=== PATIENT | female | born 1960 | race American Indian/Alaskan Native ===

== ENCOUNTER 2017-07-07 12:40 | Outpatient (CLI) | payer MEDICARE ==
--- NOTE | 2017-07-12 08:14 | Magnetic Resonance Report ---
BILATERAL BREAST MRI WITHOUT AND WITH CONTRAST: 07/07/17 12:40:00 CLINICAL: Family history of breast cancer with breast cancer in her daughter at age 42, paternal aunt at age 50 and paternal grandmother at age 70. Recent abnormal left mammogram and left breast ultrasound. A biopsy was recommended for a left subcutaneous mass measuring 1.3 x 1.3 x 1.0 cm. There is no mention of a clock face and there are no comparison images. COMPARISON:None. TECHNIQUE: Axial 1.0-mm T1 without, axial high resolution 2.0-mm T2 and axial 1.0-mm dynamic Vibrant high-resolution postcontrast T1 fat saturation sequences on a 1.5 Trina magnet. The examination was performed with an 8 channel dedicated [place] breast coil. Post processing with CAD and subtraction was performed on an [employer] workstation. 17.0 cc of Multihance was injected without incident for the contrast portion of the exam. Consent was obtained prior to the administration of the contrast. FINDINGS: Right: Mild background parenchymal enhancement. No mass or suspicious enhancement. A 7 mm subcutaneous nonenhancing cyst of the lower inner quadrant near the cleavage is consistent with a benign sebaceous cyst. The adjacent skin is thickened. A second skin lesion is identified at 3 o'clock at the areola. The lesion measures 4 mm and demonstrates focal enhancement. No suspicious right axillary or right internal mammary lymph nodes. Left: Mild background parenchymal enhancement. No mass or suspicious enhancement. No skin lesion of the left breast is identified. No suspicious left axillary or left internal mammary lymph nodes. IMPRESSION: Negative study with two benign skin lesions of the right breast. No suspicious findings. Recommend routine mammographic screening. BI-RADS 2 - - Benign
== END 2017-07-07 12:41 | disposition home or self-care (01) ==
LOC: SPVIMAG 12:40
PROVIDERS: ATTEND Surgery
DX: R92.8 Other abnormal and inconclusive findings on diagnostic imaging of breast (principal); L72.3 Sebaceous cyst; Z80.3 Family history of malignant neoplasm of breast
CPT/HCPCS: A9577; C8908; 77059

== ENCOUNTER 2017-07-21 05:58 | Day surgery (SDC) | payer MEDICARE ==
[2017-07-21] MEDS ORDERED: XYLOCAINE MPF 2% ONE (07:20)
[2017-07-21] MEDS ORDERED: SUBLIMAZE ONE (07:21)
[2017-07-21] MEDS ORDERED: DIPRIVAN 10 MG/ML IV ONE (07:21)
--- NOTE | 2017-07-21 07:27 | Anesthesia Day of Surgery ---
Anesthesia Day of Surgery - Day of Surgery Patient Examined: Yes Patient H&P Reviewed: Yes Patient is NPO: Yes
--- NOTE | 2017-07-21 07:27 | Anesthesia Consultation ---
Anesthesia Consult and Med Hx Date of service: 07/21/17 - Airway Anesthetic Teeth Evaluation: Good ROM Head & Neck: Adequate Mental/Hyoid Distance: Adequate Mallampati Class: Class II Intubation Access Assessment: Good - Pulmonary Exam CTA: Yes - Cardiac Exam Cardiac Exam: No Murmur - Pre-Operative Health Status ASA Pre-Surgery Classification: ASA2 - Pulmonary Hx Respiratory Symptoms: Yes - Central Nervous System Hx Psychiatric Problems: No - Other Systems Hx Alcohol Use: No Hx Substance Use: No Hx Cancer: No
[2017-07-21] MEDS ORDERED: LACTATED RINGERS 1,000 ML IV SCH (08:00)
[2017-07-21] MEDS ORDERED: VERSED IV NR (08:00)
[2017-07-21] MEDS ORDERED: PEPCID PO NR (08:00)
--- NOTE | 2017-07-21 08:45 | Short Stay Summary ---
Short Stay Documentation Date of service: 07/21/17 - History H&P: obtained from office - Allergies and Medications Current Medications: Allergies No Known Allergies Allergy (Verified 07/20/17 09:58) Home Medications Medication Instructions Recorded Confirmed Last Taken Type Ergocalciferol [Vitamin D2] 1 cap PO QWEEK 07/20/17 07/21/17 07/19/17 History Mycophenolate [Cellcept] 500 mg PO BID 07/20/17 07/21/17 07/21/17 04:00 History Omeprazole 40 mg PO DAILY 07/20/17 07/21/17 07/20/17 04:00 History HYDROcodone/APAP 5-325 [[place] 1 each PO Q6HR PRN #30 tablet 07/21/17 Unknown Rx 5/325] Active Medications Cefazolin Sodium (Ancef/Sterile Water 2 Gm/20 Ml) 2 gm IV PREOP NR Stop: 07/21/17 12:00 Famotidine (Pepcid) 20 mg PO PREOP NR Stop: 07/21/17 21:00 Last Admin: 07/21/17 08:13 Dose: 20 mg Lactated Ringer's (Lactated Ringers) 1,000 mls @ 100 mls/hr IV DIRECT ROCIO Last Admin: 07/21/17 07:55 Dose: 100 mls/hr Midazolam HCl (Versed) 2 mg IV PREOP NR Stop: 07/21/17 23:59 Last Admin: 07/21/17 08:15 Dose: 2 mg - Brief post op/procedure progress note Date of procedure: 07/21/17 Pre-op diagnosis: Left upper lateral axilla sebaceous cyst; right breast nodule Post-op diagnosis: same Procedure: Left lateral back/axilla sebaceous cyst excisional biopsy and right breast mass excisional biopsy Anesthesia: SETHA Surgeon: ISRAEL BERMUDEZ Salesperson Meats: KOSTAS VENTURA Estimated blood loss: minimal Pathology: list (right breast mass and sebaceous cyst) Specimen disposition: to lab Condition: stable - Disposition Condition at discharge: Good Disposition: DC-01 TO HOME OR SELFCARE Short Stay Discharge Plan Activity: other (no heavy lifting) Diet: regular Wound: other (may shower in 48 hours; no baths, pools or lakes; do not rub or scrub incision) Follow up with: RICARDA CASTELLANO MD [Primary Care Provider] - 7 Days ISRAEL BERMUDEZ MD [Staff Physician] - 7 Days Prescriptions: Cephalexin [Keflex] 500 mg PO Q12HR #14 cap HYDROcodone/APAP 5-325 [[place] 5/325] 1 each PO Q6HR PRN #30 tablet PRN Reason: Pain
--- NOTE | 2017-07-21 08:50 | Operative Report ---
Operative Report Operative Report: Date of Service: July 21, 2017 Preoperative diagnosis: Left lateral back sebaceous cyst and right breast sebaceous cyst of the lower inner quadrant Postoperative diagnosis: Same Procedure: Right breast sebaceous cyst lower inner quadrant excisional biopsy and left lateral back sebaceous cyst excisional biopsy Surgeon: Liliam Delacruz M.D. Mds Rn: DILLAN Perez Findings: Right breast probable sebaceous cyst of the lower inner quadrant and left lateral back sebaceous cyst Complications: None Drains: None Estimated blood loss: Minimal Disposition: PACU in good condition Indication for operative procedure: This is a 57-year-old lady with left breast probable sebaceous cyst of the lower inner quadrant and left lateral back sebaceous cyst. Patient wished to proceed excisional biopsy of both lesions. The patient was procedure in detail: The patient was taken to the operating room and was laid supine. General anesthesia was administered. The right breast sebaceous cyst was palpable around the 3/4 o'clock position and left lateral back sebaceous cyst was palpable. Attention was taken towards the right breast first. The right breast was prepped and draped in the normal sterile operative fashion. Timeout was performed. A breast incision was made with a 15 blade knife at probable sebaceous cyst with dissection taken down to the subcutaneous tissues. The area of concern was removed with the aid of the Bovie cautery. The specimen was sent to pathology. Hemostasis was then obtained using the Bovie cautery. The breast cavity was irrigated and suctioned and then anesthesized with 1% lidocaine mixed with quarter percent Marcaine. The subcutaneous tissues were approximated and closed using interrupted 3-0 Vicryl and skin brought together and closed using a running 4-0 Monocryl followed by skin affix. Attention was then taken towards the left lateral back sebaceous cyst. The patient was repositioned. The left lateral back was prepped and draped in the normal sterile operative fashion. Timeout was performed. An incision was made with a 15 blade knife at sebaceous cyst with dissection taken down to the subcutaneous tissues. The area of concern was removed with the aid of the Bovie cautery. The specimen was sent to pathology. Hemostasis was then obtained using the Bovie cautery. The cavity was irrigated and suctioned and then anesthesized with 1% lidocaine mixed with quarter percent Marcaine. The subcutaneous tissues were approximated and closed using interrupted 3-0 Vicryl and skin brought together and closed using a running 4-0 Monocryl followed by skin affix. She tolerated surgery very well and was awakened from anesthesia without any complication and transported to PACU in good condition.
[2017-07-21] MEDS ORDERED: ANCEF/STERILE WATER 2 GM/20 ML IV NR (09:00)
[2017-07-21] MEDS ORDERED: MARCAINE 0.25% INFILTRATI ONE ×3 (10:00→10:45)
[2017-07-21] MEDS ORDERED: NACL 0.9% IR ONE (10:00)
[2017-07-21] MEDS ORDERED: XYLOCAINE 1% 20 mL INFILTRATI ONE ×2 (10:00)
[2017-07-21] MEDS ORDERED: LACTATED RINGERS 1,000 ML ONE (10:17)
[2017-07-21] MEDS ORDERED: ZOFRAN ONE (10:17)
[2017-07-21] MEDS ORDERED: XYLOCAINE 1% 20 mL ONE (10:45)
[2017-07-21] MEDS ORDERED: NORCO 5/325 PO SCH (11:18)
[2017-07-21] MEDS ORDERED: ZOFRAN IV SCH (11:20)
[2017-07-21 11:39] VITALS: BP 135/71
--- NOTE | 2017-07-21 15:04 | Post Anesthesia Evaluation ---
- Post Anesthesia Evaluation Patient Participated: Yes Airway Patent: Yes Stable Respiratory Function: Yes Nausea/Vomiting: No Temp > 96.8F: Yes Pain Manageable: Yes Adequeate Hydration: Yes Anesthesia Complications: No
== END 2017-07-21 12:11 | disposition home or self-care (01) ==
LOC: OR 05:58
PROVIDERS: ATTEND Surgery
DX: L72.0 Epidermal cyst (principal); N60.81 Other benign mammary dysplasias of right breast; Z98.890 Other specified postprocedural states; Z90.710 Acquired absence of both cervix and uterus
CPT/HCPCS: 11402; 19120; 88307; J0690; J2250; J2405; J2704; J3010; J7120; 88304

== ENCOUNTER 2017-10-26 08:50 | Outpatient (CLI) | payer MEDICARE ==
--- NOTE | 2017-10-26 10:39 | Mammography Report ---
BILATERAL DIGITAL SCREENING MAMMOGRAM with CAD: 10/26/17 08:50:00 CLINICAL: Routine screening.Status post right benign surgical excision this year. COMPARISON:[facility] 2017 mammogram. FINDINGS: The breasts are heterogeneously dense, which may obscure small masses. No mass, architectural distortion or suspicious calcifications. IMPRESSION: No mammographic evidence of malignancy. BI-RADS CATEGORY: 1 - - Negative RECOMMENDATION: Routine mammographic screening in one year. COMMENT: Patient follow-up letters are generated by our [employer] application.
== END 2017-10-26 08:51 | disposition home or self-care (01) ==
LOC: SPVWC 08:50
PROVIDERS: ATTEND Surgery
DX: Z12.31 Encounter for screening mammogram for malignant neoplasm of breast (principal); K21.9 Gastro-esophageal reflux disease without esophagitis; M19.90 Unspecified osteoarthritis, unspecified site; Z90.710 Acquired absence of both cervix and uterus
CPT/HCPCS: 77067

== ENCOUNTER 2018-05-05 08:43 | Outpatient (CLI) | payer MEDICARE ==
--- NOTE | 2018-05-10 08:35 | Magnetic Resonance Report ---
BILATERAL BREAST MRI WITHOUT AND WITH CONTRAST: 05/05/18 08:43:00 CLINICAL: Strong family history of breast cancer with breast cancer in her daughter at age 42, paternal aunt at age 50 and paternal grandmother at age 70. History of bilateral surgical excisions of sebaceous cysts. COMPARISON:10/26/17 bilateral screening mammogram and 07/07/17 MRI breast. TECHNIQUE: Axial 1.0-mm T1 without, axial high resolution 2.0-mm T2 and axial 1.0-mm dynamic Vibrant high-resolution postcontrast T1 fat saturation sequences on a 1.5 Trina magnet. The examination was performed with an 8 channel dedicated [place] breast coil. Post processing with CAD and subtraction was performed on an [employer] workstation. 17.0 cc of Multihance was injected without incident for the contrast portion of the exam. Consent was obtained prior to the administration of the contrast. FINDINGS: Right: Mild background parenchymal enhancement. No mass or suspicious enhancement. Stable 4 mm enhancing skin lesion at 3 o'clock at the areola. No suspicious lymph nodes. Left: Mild background parenchymal enhancement. No mass or suspicious enhancement. No suspicious lymph nodes. IMPRESSION: Negative study with a stable benign skin lesion of the right breast at the areola. BI-RADS 2 - - Benign
== END 2018-05-05 08:44 | disposition home or self-care (01) ==
LOC: SPVIMAG 08:43
PROVIDERS: ATTEND Surgery
DX: Z03.89 Encounter for observation for other suspected diseases and conditions ruled out (principal); K21.9 Gastro-esophageal reflux disease without esophagitis; Z90.710 Acquired absence of both cervix and uterus; Z80.3 Family history of malignant neoplasm of breast
CPT/HCPCS: A9577; C8908; 77049

== ENCOUNTER 2019-11-09 09:45 | Outpatient (CLI) | payer MEDICARE ==
--- NOTE | 2019-11-09 15:08 | Mammography Report ---
DIGITAL SCREENING MAMMOGRAM WITH CAD, 11/09/2019 INDICATION: Routine screening mammography. TECHNIQUE: Digital bilateral 2D mammography was obtained in the craniocaudal and mediolateral obliq ue projections. This examination was interpreted with the benefit of Computer-Aided Detection analysi s. COMPARISON: Prior mammograms 11/01/2018 and 10/26/2017 FINDINGS: Breast Density: The breasts are heterogeneously dense, which may obscure small masses. There is no evidence of dominant mass, suspicious calcifications or architectural distortion in eithe r breast. There has been no significant change compared with the prior examinations. IMPRESSION: Follow up recommendation: Routine yearly BI-RADS Category 1: Negative. A "normal" or negative report should not discourage follow up or biopsy of a clinically significant f inding. A written summary of these findings will be mailed to the patient. The patient will be entered into a mammography reporting system which will generate a reminder letter for the patient's next appointmen t at the appropriate interval. The [employer] recommends yearly mammograms starting at age 40 and continuing as l annie as a woman is in good health. Breast MRI is recommended for women with an approximate 20-25% or greater lifetime risk of breast cancer, including women with a strong family history of breast or ova kathleen cancer or who have been treated for Hodgkin's disease. Signer Name: Cynthia Krishnan MD Signed: 11/09/2019 3:04 PM Workstation Name: [id number]
== END 2019-11-09 09:46 | disposition home or self-care (01) ==
LOC: SPVWC 09:45
PROVIDERS: ATTEND Surgery
DX: Z12.31 Encounter for screening mammogram for malignant neoplasm of breast (principal)
CPT/HCPCS: 77067